=== PATIENT | male | born 2000 | race African-American/Black ===

== ENCOUNTER 2019-04-11 14:26 | Emergency (ER) | payer OTHER ==
[2019-04-11] MEDS ORDERED: NS 0.9% 1000 ML** 1,000 ML IV ONE (14:38)
--- NOTE | 2019-04-11 14:41 | ED ---
Substance Abuse/Use - HPI Summary HPI Summary: The pt is a 19 yr old male presenting to [facility] c/o possible drug overdose beginning 2 hours [employer]. He states that he knows he took teresa and states that he swallowed the pill to keep himself from getting in trouble. He states that his heart started beating faster, felt chest pain, and passed out after taking the pill. He rates his current pain a 0/10 due to the chest pain. No aggravating or alleviating factors noted. - History Of Current Complaint Stated Complaint: POSS DRUG OVERDOSE PER EMS Hx Obtained From: Patient Onset/Duration of Drug/ETOH Abuse: Hours Ingestion History: Type/Name Of Drug - "teresa" Overdose Characteristics: Oral Severity Initially: Moderate Severity Currently: None Aggravating Factor(s): Nothing Alleviating Factor(s): Nothing Associated Signs And Symptoms: Chest Pain, Other: - pos - increased heart rate, syncope PMH/Surg Hx/FS Hx/Imm Hx Sensory History: Denies: Hx Legally Blind, Hx Deafness Opthamlomology History: Denies: Hx Legally Blind EENT History: Denies: Hx Deafness - Surgical History Surgical History: None Surgery Procedure, Year, and Place: none - Family History Known Family History: Negative: Renal Disease - Social History Alcohol Use: Occasionally Substance Use Type: Reports: Marijuana Hx Tobacco Use: Yes Smoking Status (MU): Light Every Day Tobacco Smoker Type: Cigarettes Review of Systems Positive: Chest Pain, Other - pos - tachycardia Positive: Syncope All Other Systems Reviewed And Are Negative: Yes Physical Exam - Summary Physical Exam Summary: VITAL SIGNS: Reviewed. GENERAL: Patient is a well-developed and nourished male who is lying comfortable in the stretcher. Patient is not in any acute respiratory distress. HEAD AND FACE: No signs of trauma. No ecchymosis, hematomas or skull depressions. No sinus tenderness. EYES: PERRLA, EOMI x 2, No injected conjunctiva, no nystagmus. EARS: Hearing grossly intact. Ear canals and tympanic membranes are within normal limits. MOUTH: Oropharynx within normal limits. NECK: Supple, trachea is midline, no adenopathy, no JVD, no carotid bruit, no c- spine tenderness, neck with full ROM. CHEST: Symmetric, no tenderness at palpation. LUNGS: Clear to auscultation bilaterally. No wheezing or crackles. CVS: Regular rate and rhythm, S1 and S2 present, no murmurs or gallops appreciated. ABDOMEN: Soft, non-tender. No signs of distention. No rebound, no guarding, and no masses palpated. Bowel sounds are normal. EXTREMITIES: FROM in all major joints, no edema, no cyanosis or clubbing. NEURO: Alert and oriented x 3. No acute neurological deficits. Speech is normal and follows commands. SKIN: Dry and warm. Triage Information Reviewed: Yes Vital Signs Reviewed: Yes Procedures - Sedation Patient Received Moderate/Deep Sedation with Procedure: No Diagnostics - Laboratory Result Diagrams: 04/11/19 14:49 04/11/19 14:49 Lab Statement: Any lab studies that have been ordered have been reviewed, and results considered in the medical decision making process. - Radiology CXR Radiology Interpretation Completed By: Radiologist Summary of Radiographic Findings: IMPRESSION: NO ACUTE CARDIOPULMONARY PROCESS BY RADIOGRAPH. ED Physician has reviewed this report. Course/Dx - Course Assessment/Plan: The pt is a 19 yr old male presenting to [facility] c/o possible drug overdose beginning 2 hours [employer]. He states that he knows he took teresa and states that he swallowed the pill to keep himself from getting in trouble. He states that his heart started beating faster, felt chest pain, and passed out after taking the pill. He rates his current pain a 0/10 due to the chest pain. No aggravating or alleviating factors noted. Blood work without any significant abnormality except for questionable of 3.3, creatinine 1.22, glucose 126, lactic acid is 2.9, And kinase 328. UA negative for UTI. Urine tox is negative. Discussed the case with poison control and they recommend observation for approximately 4 hours. In the ED course the patient was given IV fluids. EKG shows a normal sinus rhythm without any ST elevations. Patient had an episode of anxiety and hyperventilation. He was given Ativan 2 mg IV. Approximately 5:30 the patient is alert and oriented 3. The patient is comfortable. The patient is hungry therefore the patient was given food and he ate and drank without any nausea vomiting. As per the recommendations from poison control the patient was observed for 4 hours. Right now the patient is alert and oriented 3, cooperative blood test results are within normal limits. Therefore, the patient will be discharged back to alf. The patient is hemodynamically stable alert oriented 3. - Diagnoses Differential Diagnosis/HQI/PQRI: Positive: Anxiety, Drug Abuse Provider Diagnoses: Overdose Discharge ED - Sign-Out/Discharge Documenting (check all that apply): Patient Departure - discharge - Discharge Plan Condition: Stable Disposition: HOME Patient Education Materials: Adult Overdose (ED) Referrals: Hilda CASTILLO,Johnny Sanchez [Primary Care Provider] - 3 Days Additional Instructions: Please follow up with your primary care physician within 3 days. Please return to the ED for any new or worsening symptoms. - Billing Disposition and Condition Condition: STABLE Disposition: Home - Attestation Statements Document Initiated by Scribe: Yes Documenting Scribe: Marino Solomon Provider For Whom Ciciibe is Documenting (Include Credential): José Melendrez MD Scribe Attestation: Marino Asher, scribed for José Melendrez MD on 04/12/19 at 1601. Scribe Documentation Reviewed: Yes Provider Attestation: The documentation as recorded by the Marino lamb accurately reflects the service I personally performed and the decisions made by , José Melendrez MD Status of Scribe Document: Viewed
[2019-04-11 14:54] LABS: Hematocrit 47 % (42-52); Hemoglobin 15.7 g/dL (14.0-18.0); Mean Corpuscular HGB Conc 34 g/dL (31-36); Mean Corpuscular Hemoglobin 29 pg (27-31); Mean Corpuscular Volume 87 fL (80-94); Mean Platelet Volume 10.1 fL (7.4-10.4); Platelet Count 141 10^3/uL (150-450); Red Blood Count 5.36 10^6 /uL (4.18-5.48); Red Cell Distribution Width 14 % (10-15); White Blood Count 6.6 10^3/uL (3.5-10.8)
[2019-04-11 15:05] LABS: ABS Lymphocytes 1.1 10^3/ul (1.0-4.8); ABS Monocytes 0.4 10^3/ul (0-0.8); ABS Neutrophils 5.1 10^3/ul (1.5-7.7); Eosinophil % 0.6 %; Lymphocyte % 15.9 %; Nucleated Red Blood Cells % 0.1
[2019-04-11 15:12] LABS: ALT 12 U/L (7-52); AST 16 U/L (13-39); Albumin 4.7 g/dL (3.2-5.2); Albumin/Globulin Ratio 1.7 (1-3); Alkaline Phosphatase 68 U/L (34-104); Anion Gap 8 mmol/L (2-11); BUN/Creatinine Ratio 6.6 (8-20); Blood Urea Nitrogen 8 mg/dL (6-24); CO2 Carbon Dioxide 27 mmol/L (22-32); Calcium 10.1 mg/dL (8.6-10.3); Chloride 106 mmol/L (101-111); Creatine Kinase 328 U/L (10-223); EGFR African American 91.6 (>60); EGFR Non-African American 75.7 (>60); Globulin 2.7 g/dL (2-4); Glucose 125 mg/dL (70-100); Potassium 3.3 mmol/L (3.5-5.0); Sodium 141 mmol/L (135-145); Total Protein 7.4 g/dL (6.4-8.9)
[2019-04-11] MEDS ORDERED: Lorazepam PYXIS KEY ONE (15:17)
[2019-04-11] MEDS ORDERED: LORazepam INJ* 2 MG/ML 1 ML VIAL ONE (15:17)
[2019-04-11] MEDS ORDERED: Lorazepam PYXIS KEY PRN (15:23)
[2019-04-11] MEDS ORDERED: LORazepam INJ* 2 MG/ML 1 ML VIAL IV PUSH ONE (15:23)
[2019-04-11 15:24] LABS: Urine Benzodiazepine Screen None Detected (None Detect); Urine Opiates Screen None Detected (None Detect)
[2019-04-11 15:31] LABS: Large Platelets Present
[2019-04-11 15:31] LABS: Urine Appearance Clear; Urine Bilirubin Negative (Negative); Urine Blood Negative (Negative); Urine Color Straw; Urine Glucose Negative (Negative); Urine Ketones Negative (Negative); Urine Nitrite Negative (Negative); Urine Protein Negative (Negative); Urine Specific Gravity 1.003 (1.010-1.030); Urine Urobilinogen Negative (Negative)
[2019-04-11 15:41] LABS: Acetaminophen < 15 mcg/mL; Alcohol < 10 mg/dL (<10); Salicylate < 2.50 mg/dL (<30)
[2019-04-11 15:57] LABS: TSH (Thyroid Stimulating Horm) 1.63 mcIU/mL (0.34-5.60)
[2019-04-11] MEDS ORDERED: Potassium Chlor TAB* 20 MEQ TAB.ER PO ONE (18:14)
[2019-04-11 18:48] VITALS: BP 172/91
== END 2019-04-11 18:54 | disposition home or self-care (01) ==
LOC: ED 14:26
DX: T43.642A Poisoning by ecstasy, intentional self-harm, initial encounter (principal); R07.9 Chest pain, unspecified; R55 Syncope and collapse; R00.0 Tachycardia, unspecified; R06.4 Hyperventilation; F41.9 Anxiety disorder, unspecified; Y92.9 Unspecified place or not applicable; F17.210 Nicotine dependence, cigarettes, uncomplicated
CPT/HCPCS: 36415; 71045; 80053; 80307; 80320; 80329; 81003; 82550; 83605; 84443; 85025; 93005; 96361; 96374; 99284; A9270-GY; G0480; J2060